=== PATIENT | female | born 1985 | race Caucasian/White ===

== ENCOUNTER 2017-03-07 21:28 | Emergency (ER) | payer MEDICAID ==
[~2017-03-07] VITALS: Ht 152.4 cm; Wt 51.0 kg
[~2017-03-07 21:28] MED LIST: ACET325T33 PO; BACTDS PO; CEPH-443 PO; IBUP400T22 PO
[2017-03-07 21:29] VITALS: Ht 152.4 cm; Wt 51.0 kg
[2017-03-07] MEDS ORDERED: KETOROLAC 15 MG INJ IM STA (22:44)
--- NOTE | 2017-03-07 22:44 | ERD ---
ER Documentation Chief Complaint Date/Time DATE: 03/07/17 TIME: 22:42 Chief Complaint RIGHT EAR PAIN X 2 WEEKS AGO HPI This 31-year-old female presents to emergency department today for right otalgia , x 3 weeks, described as throbbing pain worse with opening her mouth. She denies any decreased hearing discharge coming from her ear, fever, chills, or history of injury. Denies temporomandibular joint disease. ROS All systems reviewed and are negative except as per history of present illness. Medications Home Meds Active Scripts Ibuprofen* (Motrin*) 400 Mg Tab, 400 MG PO Q6, #30 TAB Prov:MANOHAR MOCTEZUMA PA-C 10/27/15 Sulfamethoxazole-Trimethoprim* (Bactrim* DS) 800-160 Mg Tab, 1 TAB PO BID for 7 Days, TAB Prov:KIRBY WILLIAMSONT M. 04/25/15 Cephalexin* (Keflex*) 500 Mg Capsule, 500 MG PO QID for 7 Days, CAP Prov:PEGGY WILLIAMSON M. 04/25/15 Acetaminophen* (Tylenol*) 325 Mg Tablet, 2 TAB PO Q6 Y for PAIN AND OR ELEVATED TEMP, #20 TAB Prov:KIRBY WILLIAMSONT M. 04/25/15 Reported Medications [None] No Conflict Check 07/03/12 Allergies Allergies: Coded Allergies: No Known Allergy (Verified , 03/07/17) PMhx/Soc Medical and Surgical Hx: pt denies Medical Hx, pt denies Surgical Hx Hx Alcohol Use: No Hx Substance Use: No Hx Tobacco Use: No Physical Exam Vitals Vital Signs Date Time Temp Pulse Resp B/P Pulse Ox O2 Delivery O2 Flow Rate FiO2 03/07/17 21:29 97.8 57 17 110/60 100 Stable, triage notes reviewed Physical Exam Const: Nourished well-appearing well-hydrated 31-year-old female in no acute distress Head: Atraumatic Eyes: Normal Conjunctiva PERRLA, EOMI ENT: Tympanic membrane presents with serous fluid, no evidence of infection, left tympanic membrane presents translucent with positive landmarks. Nasal mucosa is edematous, dried mucus noted no crest or bleeding points. No maxillary or frontal sinus tenderness. Patient has temporomandibular joint tenderness with palpated opening and closing of jaw. No mastoid tenderness to palpation. No parotid tenderness Neck: Full range of motion..~ No meningismus. No cervical chain nodes. Resp: Clear to auscultation bilaterally, no rales wheezes or rhonchi, no respiratory distress Cardio: Regular rate and rhythm, no murmurs Abd: . Skin: Back: Ext: Neur: Awake and alert Psych: Normal Mood and Affect Results 24 hrs Current Medications Medications (Trade) Dose Ordered Sig/Liliya Route PRN Reason Start Time Stop Time Status Last Admin Dose Admin Ketorolac Tromethamine (Toradol) 15 mg ONCE STAT IM 03/07/17 22:44 03/07/17 22:46 DC 03/07/17 23:03 Diazepam (Valium) 5 mg ONCE ONCE PO 03/07/17 23:00 03/07/17 23:01 DC 03/07/17 22:57 Neomycin/ Polymyxin/ Hydrocortisone (Cortisporin Otic Susp) 4 drop ONCE ONCE RIGHT EAR 03/07/17 23:30 03/07/17 23:31 DC Procedures/MDM This 31-year-old female presents to emergency department with right temporomandibular joint tenderness right ear tenderness. Patient denies any headache, any change in hearing or discharge from the ear, denies any rhinitis, postnasal drip, cough fever or chills. Symptoms have been present for 3 weeks. Patient reports symptoms worse with opening her mouth. Physical exam and history supports a temporomandibular joint, and a serous otitis media. Today's emergency room course includes Toradol intramuscularly, Valium p.o., patient reassessed after 60 minutes with improvement of symptoms. Patient's ear is no longer hurting. Plan to discharge patient home with Naprosyn 1 tab p.o. twice daily 10 days and Sudafed 30 mg 3 times daily as needed otitis. We will up with primary care physician in the next 2 days if symptoms fail to improve as anticipated. Schedule appointment with dentist for evaluation of the temporomandibular joint dysfunction. Patient is stable with no new complaints during ER course, clinically there is no current evidence to suggest meningitis , sepsis, acute abdomen, mastoiditis, otitis media, parotiditis or any other emergent condition appearing to require further evaluation or hospitalization. I feel the patient is stable for discharge at this time. I have discussed results, examination findings, the treatment plan with the patient and family present prior to discharge. Indications for emergent reevaluation, side effects of medication were also discussed. All questions were answered. Patient verbalizes understanding and agrees with plan of care. Departure Diagnosis: Primary Impression: TMJ (temporomandibular joint disorder) Additional Impression: Serous otitis media Chronicity: unspecified Laterality: right Qualified Code: H65.91 - Right serous otitis media, unspecified chronicity Condition: Good Patient Instructions: Tmj Syndrome [facility] Additional Instructions: Thank you for for coming to [facility] for your care today. Please ask your nurse or provider if you have questions about your care today and do not leave until all your questions have been answered. Please use any medications given as directed and follow-up with your doctor (or the doctor you were referred to) in the next 2-3 days. If you do not have a primary care doctor you may follow up at the [facility] (listed below). You may also use motrin and tylenol as needed for fever and/or pain unless instructed otherwise by your provider or nurse. Indications for more urgent follow-up have been discussed, but you may return to the Emergency Department at ANY time for any worrisome or worsening symptoms. If you have abdominal pain, please know that no test or exam you received is perfect and you should follow up within 8 hours for continued pain. If you had any imaging studies today, such as an X-Ray or CT Scan, these studies will be reviewed later by a radiologist. You will be called if there are important findings that were not identified today, so make sure the contact information you provided at registration is correct. If you received any narcotic pain control medicine today, such as Vicodin, Morphine or Dilaudid, your coordination and judgment may be affected for a number of hours. Please do not drive or operate heavy machinery, and you may want someone to assist you at home. If you were given a prescription for narcotic medication, be aware that it is very addictive- use sparingly and only if necessary. BINU JERRY Mar 07, 2017 22:44
[2017-03-07] MEDS ORDERED: DIAZEPAM 5 MG TAB PO ONE (23:00)
[2017-03-07] MEDS ORDERED: NEOMYC/POLYMYX/HC 10 ML OTIC SUSP RIGHT EAR ONE (23:30)
[2017-03-08] MEDS ORDERED: NAPR-260 PO (01:22)
[2017-03-08] MEDS ORDERED: PSEU30TA38 PO (01:23)
[2017-03-08 01:27] VITALS: BP 118/70; PULSE 78; RESP 18; TEMP 98
== END 2017-03-08 01:28 | disposition home or self-care (01) ==
LOC: FTE 21:28
DX: M26.601 Right temporomandibular joint disorder, unspecified (principal); H65.91 Unspecified nonsuppurative otitis media, right ear
CPT/HCPCS: 96372; J1885; Z7502; Z7610

== ENCOUNTER 2018-11-15 12:39 | Emergency (ER) | payer MEDICAID ==
[~2018-11-15] VITALS: Wt 52.3 kg
[~2018-11-15 12:39] MED LIST changes: +IBUP-1561 PO; -IBUP400T22 PO; +NAPR-985 PO; +PSEU30TA38 PO
[2018-11-15 13:00] VITALS: BP 122/72; PULSE 82; RESP 20
[2018-11-15] MEDS ORDERED: AMOX1TAB10 PO (14:06)
--- NOTE | 2018-11-15 14:16 | ERD ---
ER Documentation Chief Complaint Chief Complaint DOG BITE L LOWER LEG X1 HR AGO HPI This is a 33-year-old female with a nonsignificant past medical history presents ED with dog bite to left calf that occurred 1 hour prior to arrival in ED. Patient admits to some pain along the dog bite area. Denies decreased range of motion, tingling, numbness, lack sensation, difficulty walking. Unsure when last tetanus was ROS All systems reviewed and are negative except as per history of present illness. Medications Home Meds Active Scripts Amoxicillin/Potassium Clav (Amox-Clav 875-125 mg Tablet) 875-125 mg Tab, 1 TAB PO BID for 10 Days, #20 TAB Prov:ZAIN HALLMAN PA-C 11/15/18 Pseudoephedrine Hcl* (Pseudoephedrine Hcl*) 30 Mg Tablet, 30 MG PO Q8 PRN for CONGESTION for 3 Days, TAB Prov:CLARITZA,BINU 03/08/17 Naproxen* (Naprosyn*) 500 Mg Tablet, 500 MG PO BID PRN for PAIN AND/OR INFLAMMATION, #20 TAB Prov:CLARITZA,BINU 03/08/17 Ibuprofen* (Motrin*) 400 Mg Tab, 400 MG PO Q6, #30 TAB Prov:MANOHAR MOCTEZUMA PA-C 10/27/15 Sulfamethoxazole-Trimethoprim* (Bactrim* DS) 800-160 Mg Tab, 1 TAB PO BID for 7 Days, TAB Prov:PEGGY WILLIAMSON M. 04/25/15 Cephalexin* (Keflex*) 500 Mg Capsule, 500 MG PO QID for 7 Days, CAP Prov:PEGGY WILLIAMSON M. 04/25/15 Acetaminophen* (Tylenol*) 325 Mg Tablet, 2 TAB PO Q6 PRN for PAIN AND OR ELEVATED TEMP, #20 TAB Prov:PEGGY WILLIAMSON M. 04/25/15 Reported Medications [None] No Conflict Check 07/03/12 Allergies Allergies: Coded Allergies: No Known Allergy (Verified , 03/07/17) PMhx/Soc Hx Alcohol Use: No Hx Substance Use: No Hx Tobacco Use: No FmHx Family History: No diabetes Physical Exam Vitals Vital Signs Date Temp Pulse Resp B/P (MAP) Pulse Ox O2 O2 Flow FiO2 Time Delivery Rate 11/15/18 98.3 82 20 122/72 99 13:00 (89) Physical Exam Physical Exam Vitals signs: Reviewed by me. General: Well developed, well nourished, in no acute distress. Patient is awake and alert. Head: Normocephalic, atraumatic. Eyes: Normal conjunctiva, MSK: No edema, no unilateral swelling, 5/5 strength Neurologic: Alert and oriented, moving all extremities, normal speech, no focal weakness, no cerebellar signs. Normal mentation Skin: Small puncture wound to left posterior calf, no surrounding erythema, swelling or tenderness to palpation, no purulent drainage, no active bleeding, Psych: Normal mood Results 24 hrs Current Medications Medications Dose Sig/Liliya Start Time Status Last (Trade) Ordered Route PRN Stop Time Admin Dose Reason Admin Diphtheria/ 0.5 ml ONCE ONCE 11/15/18 DC 11/15/18 Tetanus/Acell IM* 14:30 14:36 Pertussis 11/15/18 14:31 (Adacel) Procedures/MDM ER COURSE: The patient was stable throughout ED course. I kept the patient and/or family informed of laboratory and diagnostic imaging results throughout the emergency room course. The patient was promptly evaluated and a treatment plan was devised based on H&P and other data. This plan was discussed with the patient who agreed and had no further questions or concerns prior to discharge. MEDICAL DECISION MAKING: This is a 33-year-old female presents ED with dog bite to left posterior calf. Patient was given tetanus in the emergency department and wound care was provided. Patient will be sent home on Augmentin to prevent any bacterial infe ction from forming. History and physical examination other data not consistent with emergent processes including but not limited to fracture, dislocation, tendon rupture, ischemia, neurovascular injury, compartment syndrome, septic joint, avascular necrosis, osteomyelitis, necrotizing fasciitis, septic joint, septic arthritis, or other emergent conditions. Patient's vitals are stable and can be managed outpatient with close follow-up. Advised patient to follow-up with primary care in the next 48 hours. Return to ED with any worsening symptoms. DISPOSITION PLAN: We discussed follow up with the patient's primary care doctor within 24 to 48 hours. Patient counseled regarding my diagnostic impression and care plan. Prior to discharge all questions answered. Pt agrees with treatment plan and understands strict return precautions. Precautionary instructions provided including instructions to return to the ER if not improving or for any worsening or changing symptoms or concerns. ExitCare instructions provided. Prior to discharge, patients vital signs have been reviewed SPECIALIST FOLLOW UP RECOMMENDED: None Patient has been advised to follow up with primary care in 1-2 days. Disclaimer: Inadvertent spelling and grammatical errors are likely due to EHR/ dictation software use and do not reflect on the overall quality of patient care. Also, please note that the electronic time recorded on this note does not necessarily reflect the actual time of the patient encounter. Departure Diagnosis: Primary Impression: Dog bite of calf Encounter type: initial encounter Laterality: left Qualified Codes: S81.852A - Open bite, left lower leg, initial encounter; W54.0XXA - Bitten by dog, initial encounter Condition: Stable Patient Instructions: Dog Bite [facility]: [facility] Usted se sharif hecho un examen mdico de control que le indica que no est en enrique condicin que requiera tratamiento urgente en el Departamento de Emergencia. Un estudio ms profundo y el tratamiento de friedman condicin pueden esperar sin ningn riesgo hasta que usted sea atendida/o en el consultorio de friedman mdico o enrique clnica. Es responsabilidad suya arreglar enrique courtney para el seguimiento del delia. MANEJO DE CONDICIONES NO URGENTES EN EL FUTURO 1) Si usted tiene un mdico de atencin primaria: Usted debera llamar a friedman mdico de atencin primaria antes de venir al departamento de emergencia. Despus de las horas de consultorio, friedman doctor o friedman asociado/a est disponible por telfono. El mdico o enfermero de sadaf en el servicio telefnico puede asesorarle por demetra medio para atender el problema, o delia contrario se puede programar enrique courtney. 2) Si usted no tiene un mdico de atencin primaria: Llame al mdico o clnica de referencia que aparece abajo david las horas de consultorio para hacer enrique courtney para que le vean. CLINICAS: [facility] [phone] [facility] [phone] [facility] [phone] [place] [address] [phone] [place] [address] [phone] [place] [place] [id number] [phone] Additional Instructions: Paciente aconseja volver a Departamento de urgencias inmediatamente para sntomas nuevos o que empeoran . Paciente aconseja posteriores con el PCP en 1-2 more . Paciente verbaliza la comprehensin y est de acuerdo con el tratamiento y el curso de accin. Si el paciente no tiene ninguna de atencin primaria pueden seguir con [facility] [address] [place] [address] o [facility]AC + [address] [phone] ZAIN HALLMAN PA-C November 15, 2018 14:16
[2018-11-15] MEDS ORDERED: DIPHTH/TET/ACEL PERTUSS (ADULT) 0.5 ML VIAL IM* ONE (14:30)
== END 2018-11-15 14:43 | disposition home or self-care (01) ==
LOC: FTE 12:39
DX: S81.852A Open bite, left lower leg, initial encounter (principal); W54.0XXA Bitten by dog, initial encounter; Y92.9 Unspecified place or not applicable; Z23 Encounter for immunization
CPT/HCPCS: 90471; 90715; Z7502

== ENCOUNTER 2018-11-22 00:06 | Emergency (ER) | payer MEDICAID ==
[~2018-11-22] VITALS: Ht 147.3 cm; Wt 52.7 kg
[~2018-11-22 00:06] MED LIST changes: +AMOX1TAB10 PO
[2018-11-22 00:15] VITALS: BP 103/65; PULSE 78; RESP 16; Ht 147.3 cm; Wt 52.7 kg
--- NOTE | 2018-11-22 01:57 | ERD ---
ER Documentation Chief Complaint Chief Complaint pelvic pain that radiates to lower back x 2 days no fever n/v HPI This is a 33-year-old female presents here to emerge department with complaints of pelvic pain with rates right lower back for about 2 days. Also added that she has mild vaginal bleeding. Also added that she has mild vaginal bleeding. LMP: 11/06/2018. 3. Denies headache, head injury, loss of consciousness, dizziness, neck pain, neck stiffness, throat pain, difficulty swallowing, difficulty breathing lying flat, shoulder pain, chest pain, back pain, nausea, vomiting, constipation, diarrhea, urinary symptoms, or possibility being , loss of bowel and hedy dder control, trauma, injury, falls, difficulty walking due to pain, numbness or tingling sensation, calf pain, recent travel, recent major surgery in the last 3 weeks, calf pain, recent long travel, recent exposure to any illness, recent antibiotic use in the last 3 months, fever, chills, seizures. Past medical history: Surgical history: Social: Denies smoking, use of alcoholic beverages, use of illegal drugs. ROS All systems reviewed and are negative except as per history of present illness. Medications Home Meds Active Scripts Ondansetron Hcl* (Zofran*) 4 Mg Tablet, 4 MG PO Q8H PRN for NAUSEA AND/OR VOMITING, #30 TAB Prov:ASTER BERKOWITZ 11/22/18 Hydrocodone/Acetaminophen (David 5-325 Tablet) 1 Each Tablet, 1 TAB PO Q6H PRN for SEVERE PAIN LEVEL 7-10, #7 TAB Prov:ASTER BERKOWITZ 11/22/18 Naproxen* (Naprosyn*) 500 Mg Tablet, 500 MG PO BID PRN for PAIN AND/OR INFLAMMATION, #30 TAB Prov:ASTER BERKOWITZ F 11/22/18 Amoxicillin/Potassium Clav (Amox-Clav 875-125 mg Tablet) 875-125 mg Tab, 1 TAB PO BID for 10 Days, #20 TAB Prov:ZAIN HALLMAN PA-C 11/15/18 Pseudoephedrine Hcl* (Pseudoephedrine Hcl*) 30 Mg Tablet, 30 MG PO Q8 PRN for CONGESTION for 3 Days, TAB Prov:BINU JERRY 03/08/17 Naproxen* (Naprosyn*) 500 Mg Tablet, 500 MG PO BID PRN for PAIN AND/OR INFLAMMATION, #20 TAB Prov:BINU JERRY 03/08/17 Ibuprofen* (Motrin*) 400 Mg Tab, 400 MG PO Q6, #30 TAB Prov:MANOHAR MOCTEZUMA PA-C 10/27/15 Sulfamethoxazole-Trimethoprim* (Bactrim* DS) 800-160 Mg Tab, 1 TAB PO BID for 7 Days, TAB Prov:KIRBY WILLIAMSONT M. 04/25/15 Cephalexin* (Keflex*) 500 Mg Capsule, 500 MG PO QID for 7 Days, CAP Prov:SHANIAHEKIRBY HardingT M. 04/25/15 Acetaminophen* (Tylenol*) 325 Mg Tablet, 2 TAB PO Q6 PRN for PAIN AND OR ELEVATED TEMP, #20 TAB Prov:KIRBY WILLIAMSONT M. 04/25/15 Reported Medications [None] No Conflict Check 07/03/12 Allergies Allergies: Coded Allergies: No Known Allergy (Verified , 03/07/17) PMhx/Soc Medical and Surgical Hx: pt denies Medical Hx, pt denies Surgical Hx History of Surgery: No Anesthesia Reaction: No Hx Neurological Disorder: No Hx Respiratory Disorders: No Hx Cardiac Disorders: No Hx Miscellaneous Medical Probl: No Hx Alcohol Use: No Hx Substance Use: No Hx Tobacco Use: No Smoking Status: Never smoker Physical Exam Vitals Physical Exam Const: No acute distress Head: Atraumatic Eyes: Normal Conjunctiva ENT: Normal External Ears, Nose and Mouth. Neck: Full range of motion. No meningismus. Resp: Clear to auscultation bilaterally Cardio: Regular rate and rhythm, no murmurs Abd: Soft, non tender, non distended. Normal bowel sounds. Negative Augustin sign. Negative Hoople sign (heel jar test). Negative psoas sign. Negative Rovsing sign. No CVA tenderness. Skin: No petechiae or rashes. Color appears normal for ethnicity. Back: No midline or flank tenderness. No CVA tenderness. Ext: No cyanosis, or edema Neur: Awake and alert. No neurological deficit. Psych: Normal Mood and Affect Results 24 hrs Laboratory Tests Test 11/22/18 02:13 11/22/18 02:16 White Blood Count 8.6 10^3/ul Red Blood Count 4.01 10^6/ul Hemoglobin 11.8 g/dl Hematocrit 35.8 % Mean Corpuscular Volume 89.3 fl Mean Corpuscular Hemoglobin 29.4 pg Mean Corpuscular Hemoglobin Concent 33.0 g/dl Red Cell Distribution Width 11.9 % Platelet Count 269 10^3/UL Mean Platelet Volume 9.6 fl Immature Granulocytes % 0.600 % Neutrophils % 44.0 % Lymphocytes % 45.1 % Monocytes % 7.1 % Eosinophils % 2.7 % Basophils % 0.5 % Nucleated Red Blood Cells % 0.0 /100WBC Immature Granulocytes # 0.050 10^3/ul Neutrophils # 3.8 10^3/ul Lymphocytes # 3.9 10^3/ul Monocytes # 0.6 10^3/ul Eosinophils # 0.2 10^3/ul Basophils # 0.0 10^3/ul Nucleated Red Blood Cells # 0.0 10^3/ul Urine Color YELLOW Urine Clarity CLEAR Urine pH 6.0 Urine Specific [place] 1.015 Urine Ketones NEGATIVE mg/dL Urine Nitrite NEGATIVE mg/dL Urine Bilirubin NEGATIVE mg/dL Urine Urobilinogen NEGATIVE mg/dL Urine Leukocyte Esterase NEGATIVE Alfredo/ul Urine Microscopic RBC 3 /HPF Urine Microscopic WBC 0 /HPF Urine Squamous Epithelial Cells FEW /HPF Urine Hemoglobin 2+ mg/dL Urine Glucose NEGATIVE mg/dL Urine Total Protein NEGATIVE mg/dl Sodium Level 139 mmol/L Potassium Level 3.6 mmol/L Chloride Level 103 mmol/L Carbon Dioxide Level 28 mmol/L Anion Gap 8 Blood Urea Nitrogen 14 mg/dl Creatinine 0.53 mg/dl Est Glomerular Filtrat Rate mL/min > 60 mL/min Glucose Level 104 mg/dl Calcium Level 9.5 mg/dl Total Bilirubin 0.2 mg/dl Direct Bilirubin 0.00 mg/dl Indirect Bilirubin 0.2 mg/dl Aspartate Amino Transf (AST/SGOT) 29 IU/L Alanine Aminotransferase (ALT/SGPT) 38 IU/L Alkaline Phosphatase 59 IU/L Total Protein 7.8 g/dl Albumin 4.5 g/dl Globulin 3.30 g/dl Albumin/Globulin Ratio 1.36 Amylase Level 101 U/L Lipase 254 U/L POC Beta HCG, Qualitative NEGATIVE Current Medications Medications Dose Sig/Liliya Start Time Status Last (Trade) Ordered Route PRN Stop Time Admin Dose Reason Admin Ketorolac 30 mg ONCE STAT 11/22/18 DC 11/22/18 Tromethamine IM 04:15 04:23 (Toradol) 11/22/18 04:16 Ondansetron 4 mg ONCE STAT 11/22/18 DC 11/22/18 HCl (Zofran ODT 04:15 04:23 Odt) 11/22/18 04:16 Procedures/MDM Diagnostic tests: POC urine : Negative. Urinalysis: Reviewed. Blood works: Reviewed. Pelvic ultrasound: Unremarkable pelvic ultrasound. CT of the abdomen and pelvis without contrast: 1. Cholelithiasis. Gallbladder is partially contracted and there is no definite evidence of acute inflammation.. 2. No renal calcifications or evidence of obstructive uropathy. 3. Normal appendix. 4. Bilateral L5 pars interarticularis defects. No malalignment. Treatment: Toradol IM. Zofran p.o. Re-evaluation: Negative Augustin sign. Negative [place] sign (heel jar test). Negative psoas sign. Negative Rovsing sign. No CVA tenderness. Ambulatory with steady gait and without pain to abdomen. Offered to stay here in the hospital for pain control but patient strongly refused.. Stated that she feels much better at this time and that she is ready to go home. Differential diagnosis I have low suspicion for sepsis, cholecystitis, diverticulitis, diverticulitis with abscess, pancreatitis, bowel obstruction, appendicitis, obstructing kidney stones, septic stone, pyelonephritis, ovarian cyst rupture, ovarian torsion. Final diagnosis: Cholelithiasis. Abdominal pain. Prescription: Zofran. David. Naprosyn. Follow-up with PCP in the next 24-48 hours. Come back here in the emergency department for any new symptoms or any worsening symptoms. All questions and concerns were answered. Patient and family members verbalized understanding and agreed with plan of care. Hemodynamically stable on discharge. Departure Diagnosis: Primary Impression: Cholelithiasis Additional Impression: Abdominal pain Condition: Stable Additional Instructions: Follow-up with PCP in the next 24-48 hours. Come back here in the emergency department for any new symptoms or any worsening symptoms. ASTER BERKOWITZ November 22, 2018 01:57
[2018-11-22] MEDS ORDERED: KETOROLAC 30 MG INJ IM STA (04:15)
[2018-11-22] MEDS ORDERED: ONDANSETRON (ODT) 4 MG TAB ODT STA (04:15)
[2018-11-22] MEDS ORDERED: NAPR-985 PO (05:47)
[2018-11-22] MEDS ORDERED: HYDR-4011 PO (06:02)
[2018-11-22] MEDS ORDERED: ONDA4TAB8 PO (06:02)
== END 2018-11-22 06:09 | disposition home or self-care (01) ==
LOC: FTE 00:06
DX: K80.20 Calculus of gallbladder without cholecystitis without obstruction (principal)
CPT/HCPCS: 36415; 74176; 76856; 80053; 81001; 81025; 82150; 83690; 85025; 87086; 96372; J1885; Z7502; Z7610